=== PATIENT | male | born 1950 | race Caucasian/White ===

== ENCOUNTER 2017-01-11 07:38 | Outpatient (CLI) | payer MEDICARE, MEDICAID ==
[2017-01-11 13:05] LABS: BASOPHILS % (AUTO) 0.5 %; EOSINOPHILS # (AUTO) 0.2 10^3/uL (0.0-0.7); EOSINOPHILS % (AUTO) 1.9 %; HCT - HEMATOCRIT 42.9 % (42.0-52.0); HGB - HEMOGLOBIN 14.5 g/dL (14.0-18.0); LYMPHOCYTES # (AUTO) 2.2 10^3/uL (1.5-3.5); LYMPHOCYTES % (AUTO) 26.2 %; MEAN CORPUSCULAR HEMOGLOBIN 31.9 pg (27.0-31.0); MEAN CORPUSCULAR HGB CONC 33.9 g/dL (32.0-36.0); MEAN CORPUSCULAR VOLUME 93.9 fL (80.0-94.0); MEAN PLATELET VOLUME 7.8 fL (7.4-11.4); MONOCYTES # (AUTO) 0.6 10^3/uL (0.0-1.0); MONOCYTES % (AUTO) 7.5 %; NEUTROPHILS # (AUTO) 5.5 10^3/uL (1.5-6.6); NEUTROPHILS % (AUTO) 63.9 %; RED BLOOD COUNT 4.57 10^6/uL (4.70-6.10); RED CELL DISTRIBUTION WIDTH 13.7 % (12.0-15.0); UNCORRECTED WHITE BLOOD COUNT 8.6 x10^3/uL; WHITE BLOOD COUNT 8.6 x10^3/uL (4.8-10.8)
[2017-01-11 13:20] LABS: INR 0.9 (0.8-1.2); PT - PROTHROMBIN TIME 10.3 secs (9.9-12.6)
[2017-01-11 13:28] LABS: ALBUMIN/GLOBULIN RATIO 1.5 (1.0-2.2); BILIRUBIN,TOTAL 1.5 mg/dL (0.2-1.0); BUN - BLOOD UREA NITROGEN 14 mg/dL (6-20); CARBON DIOXIDE - CO2 29 mmol/L (21-32); CHLORIDE 96 mmol/L (101-111); CHOL/HDL RATIO 3.7 (<5.0); CHOLESTEROL 213 mg/dL; CREATININE 0.8 mg/dL (0.6-1.2); GFR - MDRD 97 (>89); GLUCOSE 79 mg/dL (70-100); HDL CHOLESTEROL 57 mg/dL; LDL/HDL RATIO 2.4 (<3.6); POTASSIUM 4.2 mmol/L (3.5-5.0); SODIUM 134 mmol/L (135-145); TOTAL PROTEIN 7.3 g/dL (6.7-8.2); TRIGLYCERIDES 91 mg/dL; VLDL CHOLESTEROL 18 mg/dL
== END 2017-01-11 07:39 | disposition home or self-care (01) ==
LOC: LAB.N 07:38
PROVIDERS: ATTEND Family Medicine
DX: R56.9 Unspecified convulsions (principal); M50.30 Other cervical disc degeneration, unspecified cervical region; R23.3 Spontaneous ecchymoses; F17.210 Nicotine dependence, cigarettes, uncomplicated; Z79.899 Other long term (current) drug therapy
CPT/HCPCS: 36415; 80053; 80061; 84443; 85025; 85610; 85730

== ENCOUNTER 2017-12-12 12:10 | Emergency (ER) | payer MEDICARE, MEDICAID ==
[2017-12-12] MEDS ORDERED: DEXAMETHASONE 10 MG/ML VIAL PO STA (14:32)
--- NOTE | 2017-12-12 14:34 | ED Physician Documentation ---
PD HPI HEENT - Stated complaint Stated Complaint: NECK/THROAT/HEAD PX/ BLURRY VISION - Chief complaint Chief Complaint: Heent - History obtained from History obtained from: Patient, Family - History of Present Illness Timing - onset: How many weeks ago (2) Timing - duration: Weeks (2) Timing - details: Gradual onset, Still present Location: Left ear, Other (lymph nodes in the neck) Improves: Nothing Associated symptoms: Swollen nodes, Headache. No: Fever, Congestion, Rhinorrhea , Trismus, Unable to swallow, Facial swelling, Cough Similar symptoms before: Diagnosis (OM with rupture) Recently seen: Not recently seen - Additional information Additional information: 67-year-old male has developed some swelling in the submandibular glands bilaterally about 2 weeks ago. He did not feel he was sick otherwise until about 4 days ago when he began to have pain in the left ear as well. The swelling in the right side is gone down to swelling the left side is gone up and he remembers something similar to this when he had an infection that required incision and drainage. He describes having his middle ear drained with pus coming from the ear and hospitalization related to this. He has not had cough with this he has not had nasal congestion he does have some pain in the side of his face and ear and he feels that the swelling is slightly better this afternoon than it was this morning and it was bad this morning. He became anxious over this thinking about what he underwent previously. Review of Systems Constitutional: denies: Fever Eyes: denies: Decreased vision Ears: reports: Ear pain Nose: denies: Rhinorrhea / runny nose, Congestion Throat: reports: Other (swollen lymph nodes). denies: Sore throat Cardiac: denies: Chest pain / pressure, Palpitations Respiratory: denies: Dyspnea, Cough GI: denies: Abdominal Pain, Nausea, Vomiting : denies: Dysuria PD PAST MEDICAL HISTORY - Past Medical History Past Medical History: Yes Neuro: Other Other Past Medical History: Has had a seziure. - Past Surgical History Past Surgical History: Yes HEENT: Other - Present Medications Home Medications: Ambulatory Orders Medication Instructions Recorded Confirmed Amox/Clav 875/125 [Augmentin] 1 each PO Q12H #14 tablet 12/12/17 - Allergies Allergies/Adverse Reactions: Allergies Allergy/AdvReac Type Severity Reaction Status Date / Time No Known Drug Allergies Allergy Verified 12/12/17 12:24 - Social History Does the pt smoke?: Yes Smoking Status: Current every day smoker Does the pt drink ETOH?: No Does the pt have substance abuse?: No - Immunizations Immunizations are current?: No Immunizations: TDAP current <10years PD ED PE NORMAL - Vitals Vital signs reviewed: Yes (tachy and hypertensive ) - General General: Alert and oriented X 3, No acute distress, Well developed/nourished - HEENT HEENT: Atraumatic, PERRL, EOMI, Moist mucous membranes, Pharynx benign, Dentition benign, Other (both TM's appear dull with lichneification consistent with recent OM. ) - Neck Neck: Supple, no meningeal sign, No bony TTP, Other (There is a solitary 1cm left submandibular node that is tender to palp without fluctuance and there is no overlying erythema. ) - Cardiac Cardiac: RRR, No murmur - Respiratory Respiratory: No respiratory distress, Other (scattered wheezes ) - Abdomen Abdomen: Soft, Non tender - Back Back: No CVA TTP, No spinal TTP - Derm Derm: Normal color, Warm and dry, No rash - Extremities Extremities: No deformity, No edema - Neuro Neuro: No motor deficit, No sensory deficit Eye Opening: Spontaneous Motor: Obeys Commands Verbal: Oriented GCS Score: 15 - Psych Psych: Normal mood, Normal affect Results - Vitals Vitals: Vital Signs - 24 hr 12/12/17 12:22 Temperature 37.1 C Heart Rate 105 H Respiratory 18 Rate Blood Pressure 146/89 H O2 Saturation 98 Oxygen O2 Source Room air PD MEDICAL DECISION MAKING - ED course Complexity details: reviewed old records, considered differential, d/w patient, d/w family ED course: 67-year-old male with tender submandibular adenopathy on the left side does not appear to have active otitis today. He does have the tender adenopathy and he is treated for this with dexamethasone 10 mg orally here and we will place him on some Augmentin as well. Departure - Departure Disposition: 01 Home, Self Care Clinical Impression: Acute lymphangitis of neck Condition: Stable Instructions: ED Lymphangitis Follow-Up: [facility] [Provider Group] Prescriptions: Amox/Clav 875/125 [Augmentin] 1 each PO Q12H #14 tablet
[2017-12-12 14:44] VITALS: BP 127/86
[2017-12-12] MEDS ORDERED: CHERRY SYRUP 10 ML UDC PO ONE (14:46)
== END 2017-12-12 14:46 | disposition home or self-care (01) ==
LOC: ED 12:10
DX: F17.200 Nicotine dependence, unspecified, uncomplicated (principal); L03.222 Acute lymphangitis of neck
CPT/HCPCS: 99283; A9270

== ENCOUNTER 2019-07-02 10:35 | Outpatient (CLI) | payer MEDICARE, MEDICAID ==
--- NOTE | 2019-07-03 11:16 | XRAY Report ---
Reason: CERVICAL SPINE Procedure Date: 07/02/2019 Accession Number: [id number] / [id number] Procedure: XRN - Cervical Spine 2 View CPT Code: Final Report FULL RESULT: EXAM: CERVICAL SPINE RADIOGRAPHY EXAM DATE: 07/02/2019 11:07 AM. CLINICAL HISTORY: Chronic neck pain, cracking/popping. COMPARISONS: CERVICAL SPINE 10/20/2007 2:19 PM. TECHNIQUE: 4 views. FINDINGS: Alignment: Mild anterolisthesis at C3-C4 and mild levoscoliosis at cervicothoracic junction with mild head tilt. Bones: The cervical vertebral bodies and posterior elements are well visualized from the skull base through C7-T1. No fractures or bone lesions. Disks: Multilevel disk space narrowing which is most notable at C3-C4, C5-C6, C6-C7 and C7-T1. Facets: Mild facet degenerative changes throughout the cervical spine. Soft Tissues: Normal. No prevertebral soft tissue swelling. The visualized lung apices appear clear. IMPRESSION: Multilevel degenerative changes of the cervical spine without evidence of fracture. [facility]
== END 2019-07-02 10:36 | disposition home or self-care (01) ==
LOC: DI.N 10:35
PROVIDERS: ATTEND Family Medicine
DX: M50.31 Other cervical disc degeneration, high cervical region (principal); M47.812 Spondylosis without myelopathy or radiculopathy, cervical region
CPT/HCPCS: 72040

== ENCOUNTER 2020-09-12 10:10 | Outpatient (CLI) | payer MEDICARE, MEDICAID | END 2020-09-12 10:11 | disposition critical access hospital (66) | LOC: EMS 10:10 | PROVIDERS: ATTEND Emergency Medicine | DX: R55 Syncope and collapse (principal); R06.02 Shortness of breath | CPT/HCPCS: A0425; A0429 ==

== ENCOUNTER 2020-09-16 16:42 | Outpatient (CLI) | payer MEDICARE, MEDICAID | END 2020-09-16 16:43 | disposition short-term general hospital (02) | LOC: EMS 16:42 | PROVIDERS: ATTEND Specialist | DX: I50.9 Heart failure, unspecified (principal); I48.91 Unspecified atrial fibrillation | CPT/HCPCS: A0425; A0428 ==